=== PATIENT | male | born 1960 ===

== ENCOUNTER 2017-07-19 03:57 | Emergency (ER) | payer SELFPAY ==
[2017-07-19 04:17] VITALS: BMI 29.2
--- NOTE | 2017-07-19 04:54 | ED PDOC ---
HPI: Psych/Substance Abuse Time Seen by Provider: 07/19/17 04:12 Chief Complaint (Nursing): Alcohol Ingestion Chief Complaint (Provider): Alcohol Intoxication ED Caveat: Intoxicated History Per: EMS History/Exam Limitations: intoxication Additional Complaint(s): 57 years old male brought to the ED by [facility] for alcohol intoxication. Full HPI and ROS are limited due to the patient's condition. Past Medical History Reviewed: Historical Data, Nursing Documentation, Vital Signs Vital Signs: Last Vital Signs Temp 97.4 F L 07/19/17 04:14 Pulse 89 07/19/17 04:14 Resp 16 07/19/17 04:14 BP 112/77 07/19/17 04:14 Pulse Ox 96 07/19/17 04:14 - Family History Family History: States: Unknown Family Hx - Social History Alcohol: Social - Home Medications Home Medications: Ambulatory Orders Medication Instructions Recorded Unobtainable 07/19/17 - Allergies Allergies/Adverse Reactions: Allergies Allergy/AdvReac Type Severity Reaction Status Date / Time Unobtainable Allergy Verified 03/19/15 22:00 Review of Systems Review Of Systems: ROS cannot be obtained secondary to pt's inabilty to answer questions. Physical Exam - Reviewed Nursing Documentation Reviewed: Yes Vital Signs Reviewed: Yes - Physical Exam Appears: Positive for: No Acute Distress Head Exam: Positive for: ATRAUMATIC, NORMOCEPHALIC Neurologic/Psych: Positive for: Gait (Unsteady), Other (Slurred speech) - ECG O2 Sat by Pulse Oximetry: 96 (RA) Pulse Ox Interpretation: Normal Medical Decision Making Medical Decision Making: Time: 425 Initial Impression: 57 years old intoxicated male. Initial Plan: --Alcohol Serum --Urine Drug Screen Time: 699 Patient signed out to Dr. Sanz pending sobriety. Scribe Attestation: Documented by Alondra Ferraro, acting as a scribe for Ryan Hopkins MD. Provider Scribe Attestation: All medical record entries made by the Scribe were at my direction and personally dictated by me. I have reviewed the chart and agree that the record accurately reflects my personal performance of the history, physical exam, medical decision making, and the department course for this patient. I have also personally directed, reviewed, and agree with the discharge instructions and disposition. Disposition - Clinical Impression Clinical Impression: Alcohol abuse with intoxication - Patient ED Disposition Is Patient to be Admitted: Transfer of Care - Disposition Referrals: [facility] [Outside] Disposition Time: 07:00 Condition: FAIR Instructions: Alcohol Abuse and Alcoholism (DC) Forms: [facility] (Cameroonian) Print Language: TANZANIAN
[2017-07-19 06:24] LABS: BARBITURATES, UR NEGATIVE (NEGATIVE); BENZODIAZEPINES, UR NEGATIVE (NEGATIVE); OPIATES, UR NEGATIVE (NEGATIVE); PHENCYCLIDINE, UR NEGATIVE (NEGATIVE)
--- NOTE | 2017-07-19 07:43 | ED PDOC ---
- ECG O2 Sat by Pulse Oximetry: 96 (RA) Pulse Ox Interpretation: Normal - Progress ED Course And Treament: 700: Took over care from Dr. Hopkins. FU on sobriety. Pt. brought in for ETOH use. No injury. Resting currently. Stable. 1459: Stable. Dr. Carpenter to fu on sobriety. Disposition - Clinical Impression Clinical Impression: Alcohol abuse - POA Present On Arrival: None - Disposition Disposition: Transfer of Care Disposition Time: 15:10 Condition: FAIR Patient Signed Over To: Brenna Carpenter
[2017-07-19 12:49] VITALS: RESP 18
[2017-07-19] MEDS ORDERED: Sodium Chloride 0.9% 1,000 ML IV STA (14:49)
--- NOTE | 2017-07-19 15:29 | ED PDOC ---
- ECG O2 Sat by Pulse Oximetry: 96 (RA) Pulse Ox Interpretation: Normal Medical Decision Making Medical Decision Making: Time: 1514 -- Patient signed to me by Dr. Sanz and is pending bservation for sobreity of ETOH intoxication. -- Patient appears to be comfortable and in no pain. Patient states he ate well and denies nausea. -- HR @ 105 bpm -- Pending IV Fluid Hydration. Scribe Attestation: Documented by Nakul Eric, acting as a scribe for Dr. Brenna Carpenter. Provider Scribe Attestation: All medical record entries made by the Scribe were at my direction and personally dictated by me. I have reviewed the chart and agree that the record accurately reflects my personal performance of the history, physical exam, medical decision making, and the department course for this patient. I have also personally directed, reviewed, and agree with the discharge instructions and disposition. Disposition - Clinical Impression Clinical Impression: Alcohol abuse with intoxication - POA Present On Arrival: None - Disposition Referrals: [facility] [Outside] Disposition: Routine/Home Disposition Time: 16:00 Condition: IMPROVED Instructions: Alcohol Abuse and Alcoholism (DC) Forms: [facility] (Central African) Print Language: [place]
[2017-07-19 20:23] VITALS: BP 130/81; PULSE 81; TEMP 98
[2017-07-20 04:04] VITALS: O2SAT 96
== END 2017-07-19 15:55 | disposition home or self-care (01) ==
LOC: H.ER 03:57
DX: F10.129 Alcohol abuse with intoxication, unspecified (principal)
CPT/HCPCS: 82948; 99284; G0480; J7040